=== PATIENT | female | born 1945 | race Caucasian/White ===

== ENCOUNTER → 2016-08-10 | Outpatient (CLI) | payer MEDICARE ==
[~2016-08-10] MED LIST: AZAT50 PO; BEVA100P; ESTR0.5T PO; ESTR42.5V VAGINAL; FURO20TA PO; K-TA10TA PO; LEVO100T5 PO; PRAV40TA2 PO; SUMA50TA2 PO
[2016-08-10 11:36] LABS: AUTOMATED NEUTROPHIL # 6.5 TH/MM3 (1.8-7.7); BASOPHIL % 0.5 % (0.0-2.0); EOSINOPHIL # 0.1 TH/MM3 (0-0.4); EOSINOPHIL % 1.4 % (0.0-4.0); HEMATOCRIT 42.1 % (35.0-46.0); HEMO FLAGS DIFF FINAL; LYMPH % 13.8 % (9.0-44.0); LYMPHOCYTE # 1.2 TH/MM3 (1.0-4.8); MEAN CELL VOLUME 94.4 FL (80.0-100.0); MEAN CORPUSCULAR HEMOGLOBIN 30.5 PG (27.0-34.0); MEAN CORPUSCULAR HGB CONC 32.3 % (32.0-36.0); MONO % 10.9 % (0.0-8.0); NEUT % 73.4 % (16.0-70.0); PLATELET COUNT 233 TH/MM3 (150-450); RED BLOOD COUNT 4.46 MIL/MM3 (4.00-5.30); RED CELL DISTRIBUTION WIDTH 14.2 % (11.6-17.2); WHITE BLOOD COUNT 8.8 TH/MM3 (4.0-11.0)
[2016-08-10 11:56] LABS: BLOOD, URINE NEG (NEG); COMMENT (UR) CULT NOT INDICATED; CULTURE IF INDICATED CULT NOT INDICATED; GLUCOSE,URINE NEG (NEG); KETONE, URINE TRACE mg/dL (NEG); MUCUS URINE FEW /lpf (OCC); NITRITE,URINE NEG (NEG); SQUAMOUS EPITHELIAL CELL URINE <1 /hpf (0-5); URINE COLOR YELLOW (YELLW/STRAW)
[2016-08-10 12:01] LABS: ALKALINE PHOSPHATASE 93 U/L (45-117); ALT (GPT) 22 U/L (10-53); ANION GAP 8 MEQ/L (5-15); AST (GOT) 22 U/L (15-37); BICARBONATE 30.8 MEQ/L (21.0-32.0); BLOOD UREA NITROGEN 16 MG/DL (7-18); CHLORIDE 101 MEQ/L (98-107); GLOMERULAR FILTRATION RATE 70 ML/MIN (>89); GLUCOSE,FASTING 81 MG/DL (74-99); POTASSIUM 4.1 MEQ/L (3.5-5.1); SODIUM (NA) 140 MEQ/L (136-145); TOTAL BILIRUBIN ADULT 0.4 MG/DL (0.2-1.0)
--- NOTE | 2016-08-11 10:00 | EKG ---
Date Performed: 08/10/2016 Time Performed: 11:06:34 PTAGE: 71 years EKG: Sinus rhythm LOW QRS VOLTAGE IN PRECORDIAL LEADS BORDERLINE ECG NO PREVIOUS TRACING DOCTOR: Santosh Tang Interpretating Date/Time 08/11/2016 09:59:05
== END ==
LOC: CPRE 10:34
PROVIDERS: ATTEND Obstetrics & Gynecology Gynecology
DX: Z01.810 Encounter for preprocedural cardiovascular examination (principal); Z01.812 Encounter for preprocedural laboratory examination; N39.3 Stress incontinence (female) (male); N94.819 Vulvodynia, unspecified; R94.31 Abnormal electrocardiogram [ECG] [EKG]
CPT/HCPCS: 36415; 80053; 81001; 85025; 93005

== ENCOUNTER → 2016-08-18 | Day surgery (SDC) | payer MEDICARE ==
--- NOTE | 2016-08-10 15:40 | MH ---
cc: BREE MORROW MD, GEORGE MD DATE OF ADMISSION: 08/18/2016 DATE OF : 1945 REASON FOR ADMISSION Transobturator sling and vulvar biopsy. HISTORY OF PRESENT ILLNESS The patient is a 71-year-old white female, 2, para 2 status post prior hysterectomy and SPARC procedure who has had issues with recurrent stress incontinence unresponsive to medicinal therapy. Her urodynamic study is consistent with stress incontinence and she also has an issue with lichen sclerosis unresponsive to topical therapies. PAST MEDICAL HISTORY The patient has an issue with multiple autoimmune disorders, Crohn's disease, hypothyroidism and hypertension. MEDICATIONS 1. Avastin 100 mg, last injection one month ago. 2. Pravastatin 40 mg q. day. 3. Synthroid 100 mcg q. day. 4. Sumatriptan 50 mg p.r.n. 5. Azathioprine 50 mg q. day. 6. Furosemide 20 mg q. day. ALLERGIES None. PAST SURGICAL HISTORY 1. x2. 2. BRIANNE-BSO. 3. SPARC procedure, transvaginal tape in 2006. ALLERGIES None. SOCIAL HISTORY , has good social support. [id number] smoking history but no smoking for the last 10 years. FAMILY HISTORY Noncontributory. 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 Hysterectomy for benign condition. REVIEW OF SYSTEMS As above. No chest pain, orthopnea, PND. No nausea, vomiting, fever, chills. No vaginal bleeding or discharge. She has stress incontinence and issues with vulvar irritation and labial agglutination. PHYSICAL EXAMINATION VITAL SIGNS: She is afebrile. Vital signs stable. Blood pressure 140/70. Height 5.3, weight 146, BMI 26. GENERAL: Patient is alert and oriented, in no acute distress. No sign of cognitive dysfunction or depression. HEENT: Within normal limits. NECK: Supple. No JVD. CHEST: Clear. HEART: Regular rate and rhythm. ABDOMEN: Soft, nontender. No hepatosplenomegaly. No CVA tenderness. PELVIC: Exam in the office shows extensive agglutination of labia and of clitoral cuevas. Bilateral vulvar lesions consistent with lichen sclerosis. No significant hypermobility of the urethra. Postvoid residual 20 cc. POP-Q score: Aa is -3; Ap is -3; point C is -8; total vaginal length is 10; genital hiatus is 2; perineal body is 5. Levator strength is 3/5. Sacral nerve reflexes are normal. EXTREMITIES: Normal. SKIN: Without rashes. NEUROLOGIC: Nonfocal. No DVT signs. LABORATORY Urodynamic study shows normal pressure with no sign of obstruction, volume 68/95/176 with a leak at 100 cc. No detrusor instability. No significant postvoid residual. Normal EMG. ASSESSMENT Patient with stress incontinence with minimal hypermobility, prior history of SPARC procedure. The patient and I discussed options for management and treatment. She is aware of the risks, benefits and alternatives of planned procedure including damage to surrounding organs, bleeding, infection, fistula formation, failure to achieve resolution of stress incontinence, possible retention issues and prolonged catheterization were discussed. At this point if we can locate the prior SPARC sling we can remove that in the same setting. I suspect that it is probably closer to the urethrovesical junction which is why the sling never worked in the first place. If we can remove this without putting undue risk to the sphincter complex I think that would be beneficial. We will also perform a concurrent repair that is indicated while under anesthesia. The patient has issues with labial agglutination and vulvar lesions suggestive of lichen sclerosis unresponsive to topical therapy. We will perform excisional biopsy of lesions. We discussed options for opening the clitoral cuevas and the patient declines at this time out of her concern for scarring, pain or possibility of persistent genital stimulation syndrome. At this point we anticipate outpatient procedure. She will use antibiotic prophylaxis, two grams Ancef, and DVT prophylaxis with sequential compression device. MD RUDDY Jackson/VITO /3:13 PM /3:26 PM JIL
[~2016-08-18] VITALS: Ht 160 cm; Wt 71.0 kg
[~2016-08-18] MED LIST changes: +ACETAMINOPHEN 1000 MG/100 ML VIAL IV ONE; +CHLORHEXIDINE GLUCONATE 2 % 1 PACK (2 CLOTHS) TOPICAL PRN; -ESTR42.5V VAGINAL; +ESTROGENS CONJUGATED VAG CREA 15 APPL/30 GM TUBE ONE; +FAMOTIDINE 20 MG/2 ML VIAL ONE; +FLUORESCEIN SOD 10% SOLN 500 MG/5 ML AMP ONE; +INSULIN HUMAN REGULAR 1,000 UNITS/10 ML VIAL SQ PRN; +KETOROLAC TROMETHAMINE 60 MG/2 ML (IM) VIAL IM ONE; +LACTATED RINGER'S 1000 ML INJ 1,000 ML IV ONE; +LACTATED RINGER'S 1000 ML IV PRN; +LIDOCAINE 1%/EPINEPHrine 1:100,000 SOLN 30 ML VIAL INFIL ONE; +LIDOCAINE 1%/EPINEPHrine 1:100,000 SOLN 50 ML VIAL ONE; +METHYLENE BLUE 10 MG/ML VIAL OTHER ONE; +METOPROLOL TARTRATE 25 MG TAB PO PRN; +MIDAZOLAM HCL 2 MG/2 ML VIAL ONE; +ONDANSETRON HCL 4 MG/2 ML VIAL IV PUSH ONE; +POVIDONE IODINE 5% (ANTISEPSIS KIT) 4 APPLICATIONS EACH NARE PRN; +PROPOFOL 200 MG/20 ML AMP IV ONE; +SODIUM CHLORID 0.9% 500 ML IV PRN; +ceFAZolin 2 GM PREMIX 50 ML ONE; +ePHEDrine/NS 25 MG/5 ML SYR IV ONE; +fentaNYL CITRATE 250 MCG/5 ML AMP ONE
[2016-08-18 08:30] VITALS: BP 145/76; PULSE 64; RESP 20; TEMP 98.8; O2SAT 97
[2016-08-18 13:27] VITALS: BP 125/60; PULSE 71; RESP 16; TEMP 96.1; O2SAT 95
--- NOTE | 2016-08-19 19:14 | MP ---
cc: BREE MORROW DATE OF SURGERY 08/18/16 PREOPERATIVE DIAGNOSES 1. Stress incontinence. 2. Labial agglutination with vulvar dystrophy. 3. History of prior sling placement. POSTOPERATIVE DIAGNOSES 1. Stress incontinence. 2. Labial agglutination with vulvar dystrophy. 3. History of prior sling placement. 4. Cystocele- Stage/grade 2 PROCEDURE 1. Excision of previously implanted mesh or sling 2. Trans-obturator tape Dosera, polypropylene sling manufactured by [employer] 3. Anterior repair. 4. Perineoplasty 5. Revision of labial adhesions 6. Vulvar biopsy bilateral and at the fourchette 7. Diagnostic cystoscopy. SURGEON Nidhi Morrow MD ANESTHESIA Laryngeal mask LABEL DESIGNER [place] staff x2 FLUIDS 1000 mL crystalloid URINE OUTPUT 125 mL FINDINGS Genitalia remarkably distorted with agglutination. The genital hiatus is approximately 2 cm anteriorly. The agglutination extends to the clitoral cuevas. There are white areas along the labia minora folds bilaterally. There is a lesion and discoloration at the fourchette. With exam under anesthesia, appears to be some small area of erosion anterior, distal portion of the urethra with inspection and dissection this was the area of the prior sling placement. At the very distal portion of the urethra, not in the mid urethra as typically intended. Findings of cystoscopy showed normal trigone, good coaptation of urethra. Ureteral orifice patent x2. Dome base of bladder normal. Rectal exam normal. Pop Q score Aa 0, Ap is -2, point C is -8, total vaginal length is 8. Genital hiatus initially is two, with revision and perineoplasty it is 4 cm. SPECIMENS Vaginal echoes Right labia minora Left labia minora Vaginal fourchette. COMPLICATIONS None DISPOSITION Recovery room stable, needle and sponge count correct. DRAINS Londono catheter BLOOD LOSS 15 mL PROPHYLAXIS Antibiotic prophylaxis Ancef 2 grams. DVT prophylaxis sequential pressure device. Time-out procedure per protocol. INDICATIONS FOR PROCEDURE Patient with multiple complaints. She has had issues with a prior sling that was never effective. this was a SPARC transvaginal tape retropubic procedure done several years ago. 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 She also has issue with labial agglutination. She had documented stress incontinence on urodynamic testing and wanted to proceed with excision of prior sling, replacement of a new trans-obturator sling and revision of labia but not revision of the clitoral cuevas. PROCEDURE IN DETAIL The patient was taken to the operating theater, prepped and draped in a fashion appropriate for planned procedure. A Londono catheter was placed and methylene blue was instilled into the bladder The labial agglutinations had to be taken down bluntly just to put the catheter in. Once we divided the agglutination for approximately 2 cm, we were then able to find the urethral meatus easily. We noted a small area of some perhaps erosion in the very distal portion of the urethra. This area was infiltrated with antibiotics and lidocaine solution. Sharp dissection was used with scissors and we were able to isolate an area of sling. This was taken out up to the pubic rami without any damage to the urethra. The sling appeared to be at the very distal portion of the urethra which probably explains why the sling never worked for incontinence treatment. The urethra was further mobilized. There was no spilled methylene blue with dissection. We then identified the obturator foramen on each side, infiltrated the areas with epinephrine Lidocaine solution, made a small incision and then placed a sea hook from a lateral to medial position on each side. Again, no spilled methylene blue. We then placed the polypropylene sling in the mid urethral portion of the urethra using a scalpel handle as a spacer. Anterior repair performed in standard fashion. Vaginal mucosa was trimmed and sent for evaluation and mucosa was closed with running Vicryl suture and the hemostatic matrix was used to obviate the need for packing. Cystoscopy is performed using 17-Czech bridge, a 70 degree scope, above findings noted. Further labial revision was performed sharply. We then demarcated two areas right and left and excised these sharply and then closed these with Monocryl suture and Dermabond. At the fourchette, there was an area of discoloration. This was removed and then a perineoplasty performed without difficulty. The groin incisions were closed with Dermabond. Rectal exam was normal. Patient reversed from anesthesia after inspecting the suture line and found to be intact. The patient returned to recovery room in stable addition. MD RUDDY Jackson/ /11:48 AM /6:46 PM JIL
== END | disposition home or self-care (01) ==
LOC: HSDC 08:01
PROVIDERS: ATTEND Obstetrics & Gynecology Gynecology
DX: N39.3 Stress incontinence (female) (male) (principal); T83.712A Erosion of implanted urethral mesh to surrounding organ or tissue, initial encounter; N81.10 Cystocele, unspecified; L28.0 Lichen simplex chronicus; N90.4 Leukoplakia of vulva; I10 Essential (primary) hypertension; K50.90 Crohn's disease, unspecified, without complications; E03.9 Hypothyroidism, unspecified; Z87.891 Personal history of nicotine dependence
CPT/HCPCS: 00860; 56441; 57240; 57287; 88302; 88305; C1771; J0131; J0690; J1885; J2250; J2405; J3010; J7120